=== PATIENT | male | born 1980 | race Hispanic/Latino ===

== ENCOUNTER 2018-05-15 02:17 | Emergency (ER) | payer SELFPAY ==
[2018-05-15 02:30] VITALS: BP 151/77; PULSE 104; RESP 18; TEMP 97.9; O2SAT 97
--- NOTE | 2018-05-15 03:26 | ED PDOC ---
HPI: Psych/Substance Abuse Time Seen by Provider: 05/15/18 02:32 Chief Complaint (Nursing): Alcohol Ingestion Chief Complaint (Provider): alcohol ingestion History Per: Patient History/Exam Limitations: no limitations Onset/Duration Of Symptoms: Hrs (today) Additional Complaint(s): Peterson Bernal is a 37 year old male, with no significant past medical history, who was brought to the emergency department by EMS after he fell asleep on cab. Patient admits to alcohol use but denies any medical complaints at this time. Patient has steady gait and fluent speech. PMD: None provided. Past Medical History Reviewed: Historical Data, Nursing Documentation, Vital Signs Vital Signs: Last Vital Signs Temp 97.9 F 05/15/18 02:27 Pulse 104 H 05/15/18 02:27 Resp 18 05/15/18 02:27 BP 151/77 H 05/15/18 02:27 Pulse Ox 97 05/15/18 02:27 - Medical History PMH: No Chronic Diseases - Surgical History Surgical History: No Surg Hx - Family History Family History: States: Unknown Family Hx - Social History Alcohol: Occasional - Allergies Allergies/Adverse Reactions: Allergies Allergy/AdvReac Type Severity Reaction Status Date / Time No Known Allergies Allergy Verified 05/15/18 02:26 Review of Systems ROS Statement: Except As Marked, All Systems Reviewed And Found Negative Constitutional: Positive for: Other (alcohol use) Physical Exam - Reviewed Nursing Documentation Reviewed: Yes Vital Signs Reviewed: Yes - Physical Exam Appears: Positive for: No Acute Distress Head Exam: Positive for: ATRAUMATIC, NORMOCEPHALIC Skin: Positive for: Normal Color, Warm, Dry Eye Exam: Positive for: Normal appearance, EOMI, PERRL Neck: Positive for: Painless ROM Cardiovascular/Chest: Positive for: Regular Rate, Rhythm. Negative for: Murmur Respiratory: Positive for: Normal Breath Sounds. Negative for: Respiratory Distress Gastrointestinal/Abdominal: Positive for: Normal Exam, Soft. Negative for: Tenderness Back: Positive for: Normal Inspection Extremity: Positive for: Normal ROM (upper and lower extremities). Negative for: Deformity, Swelling Neurologic/Psych: Positive for: Alert, Oriented, Gait (steady) - ECG O2 Sat by Pulse Oximetry: 97 (RA) Pulse Ox Interpretation: Normal Medical Decision Making Medical Decision Making: Time: 02:32 Initial Impression: 37 y/o male brought for alcohol use without medical complaints. Initial Plan: 02:35 Patient is feeling better, is medically stable, and requires no further treatment in the ED at this time. Patient will be discharged home. Counseling was provided and all questions were answered regarding diagnosis. There is agreement to discharge plan. ----- Scribe Attestation: Documented by Monroe Strickland, acting as a scribe for Hong Blackwell MD. Provider Scribe Attestation: All medical record entries made by the Scribe were at my direction and per sonally dictated by me. I have reviewed the chart and agree that the record accurately reflects my personal performance of the history, physical exam, medical decision making, and the department course for this patient. I have also personally directed, reviewed, and agree with the discharge instructions and disposition. Disposition - Clinical Impression Clinical Impression: Alcohol use - Disposition Disposition: Routine/Home Disposition Time: 02:35 Condition: STABLE Forms: [employer] ([place])
== END 2018-05-15 02:46 | disposition home or self-care (01) ==
LOC: H.ER 02:17
DX: F10.10 Alcohol abuse, uncomplicated (principal)